=== PATIENT | male | born 1975 | race Two or more races ===

== ENCOUNTER 2025-04-20 17:32 | Inpatient (IN) | payer OTHER ==
[2025-04-20] MEDS ORDERED: niCARdipine 25 MG/10 ML SDV ONE ×2 (18:25→21:27)
[2025-04-20 20:52] LABS: #Basophils 0.04 10x3/uL (0.0-0.2); #Eosinophils 0.53 10x3/uL (0.0-0.7); #Monocytes 0.54 10x3/uL (0.11-0.59); #Neutrophils 4.16 10x3/uL (1.40-6.50); %Basophils 0.5 % (0.0-1.0); %Eosinophils 7.3 % (0.0-10.0); %Lymphocytes 27.8 % (21.0-51.0); %Monocytes 7.4 % (0.0-10.0); %Neutrophils 56.9 % (42.0-75.0); Hematocrit 42.9 % (42.0-52.0); Hemoglobin 13.7 g/dL (14.0-18.0); Mean Corpuscular Hemoglobin 30.1 pg (27.0-31.0); Mean Corpuscular Volume 94.3 fL (78.0-98.0); Platelet Count 305 10x3/uL (130-400); Red Blood Cell (RBC) Count 4.55 mill/uL (4.70-6.10); White Blood Cell (WBC) Count 7.31 10x3/uL (4.8-10.8)
[2025-04-20 21:26] LABS: ALT (SGPT) 16 U/L (Less than 45); AST (SGOT) 30 U/L (11-34); Albumin 4.3 g/dL (3.1-4.5); Alkaline Phosphatase 116 U/L (40-110); Anion Gap 17 mmol/L (10-20); BUN (Urea Nitrogen) 18 mg/dL (8.9-20.6); Bilirubin, Total 0.4 mg/dL (0.3-1.2); Calc. Creatinine Clearance 0 mL/min (70-130); Calcium 9.8 mg/dL (7.8-10.44); Carbon Dioxide 23 mmol/L (22-29); Chloride 105 mmol/L (98-107); Globulin 3.2 g/dL (2.4-3.5); Glucose 97 mg/dL (70-105); Potassium 3.9 mmol/L (3.5-5.1); Sodium 141 mmol/L (136-145)
[2025-04-20] MEDS ORDERED: Calcium Carbonate 500 MG ChewTAB PO PRN (22:27)
[2025-04-20] MEDS ORDERED: Ondansetron PF 4 MG/2 ML Vial IVP PRN (22:27)
[2025-04-20] MEDS ORDERED: niCARdipine 40MG In NaCl 40 MG/200 ML BAG IVPB SCH (22:30)
[2025-04-20 22:44] VITALS: BMI 36.9
[2025-04-20] MEDS: HYDROcodone/Acetaminophen 7.5/325 mg Tablet PO PRN (22:54)
[2025-04-20] MEDS ORDERED: HYDROcodone/Acetaminophen 10/325 mg Tablet PO PRN (23:44)
[2025-04-21] MEDS: Acetaminophen 325 MG TAB PO PRN (02:40)
[2025-04-21] MEDS: HYDROcodone/Acetaminophen 5/325 mg Tablet PO PRN (04:45)
[2025-04-21 05:38] LABS: #Basophils 0.03 10x3/uL (0.0-0.2); #Eosinophils 0.23 10x3/uL (0.0-0.7); #Monocytes 0.65 10x3/uL (0.11-0.59); #Neutrophils 7.00 10x3/uL (1.40-6.50); %Basophils 0.3 % (0.0-1.0); %Eosinophils 2.5 % (0.0-10.0); %Lymphocytes 14.0 % (21.0-51.0); %Monocytes 7.0 % (0.0-10.0); %Neutrophils 75.9 % (42.0-75.0); Hematocrit 42.4 % (42.0-52.0); Hemoglobin 13.8 g/dL (14.0-18.0); Mean Corpuscular Hemoglobin 30.1 pg (27.0-31.0); Mean Corpuscular Volume 92.4 fL (78.0-98.0); Platelet Count 304 10x3/uL (130-400); Red Blood Cell (RBC) Count 4.59 mill/uL (4.70-6.10); White Blood Cell (WBC) Count 9.23 10x3/uL (4.8-10.8)
[2025-04-21 06:08] LABS: ALT (SGPT) 14 U/L (Less than 45); AST (SGOT) 25 U/L (11-34); Albumin 4.2 g/dL (3.1-4.5); Alkaline Phosphatase 111 U/L (40-110); Anion Gap 15 mmol/L (10-20); BUN (Urea Nitrogen) 19 mg/dL (8.9-20.6); Bilirubin, Total 0.5 mg/dL (0.3-1.2); Calc. Creatinine Clearance 103 mL/min (70-130); Calcium 9.8 mg/dL (7.8-10.44); Carbon Dioxide 25 mmol/L (22-29); Cardiac Risk 4.1 (Less than 4.5); Chloride 102 mmol/L (98-107); Cholesterol 182 mg/dl (< 200 Desired); Globulin 3.1 g/dL (2.4-3.5); Glucose 107 mg/dL (70-105); HDL Cholesterol 44 mg/dL (>60 Neg Risk); LDL Cholesterol, Calculated 119 mg/dL; Potassium 3.7 mmol/L (3.5-5.1); Sodium 138 mmol/L (136-145); Triglycerides 95 mg/dL (Less than 150)
[2025-04-21 06:17] LABS: Free T4 (Free Thyroxine) 0.96 ng/dL (0.70-1.48); Thyroid Stimulating Hormone 0.6866 uIU/mL (0.35-4.94)
[2025-04-21] MEDS: Enoxaparin 40 MG (0.4 mL) SYRINGE SC SCH (09:15)
[2025-04-21] MEDS: Pantoprazole 40 MG VIAL IVP SCH (09:16)
[2025-04-21] MEDS: Losartan 25 MG TAB PO SCH (10:18)
[2025-04-21] MEDS: hydrALAZINE 20 MG/ML VIAL SLOW IVP PRN (12:39)
[2025-04-21 14:58] VITALS: BMI 36.9
[2025-04-21] MEDS: niCARdipine 25 MG in Sodium Chloride 0.9% 250 ML 250 ML IVPB SCH (15:37)
[2025-04-21] MEDS: niCARdipine 50 MG, Admixture Fee 1 EACH in Sodium Chloride 0.9% 250 ML 230 ML IV SCH (21:02)
[2025-04-22 05:06] LABS: #Basophils 0.04 10x3/uL (0.0-0.2); #Eosinophils 0.54 10x3/uL (0.0-0.7); #Monocytes 0.68 10x3/uL (0.11-0.59); #Neutrophils 4.37 10x3/uL (1.40-6.50); %Basophils 0.5 % (0.0-1.0); %Eosinophils 7.3 % (0.0-10.0); %Lymphocytes 23.5 % (21.0-51.0); %Monocytes 9.2 % (0.0-10.0); %Neutrophils 59.2 % (42.0-75.0); Hematocrit 44.5 % (42.0-52.0); Hemoglobin 14.0 g/dL (14.0-18.0); Mean Corpuscular Hemoglobin 29.6 pg (27.0-31.0); Mean Corpuscular Volume 94.1 fL (78.0-98.0); Platelet Count 308 10x3/uL (130-400); Red Blood Cell (RBC) Count 4.73 mill/uL (4.70-6.10); White Blood Cell (WBC) Count 7.39 10x3/uL (4.8-10.8)
[2025-04-22 05:18] LABS: ALT (SGPT) 15 U/L (Less than 45); AST (SGOT) 23 U/L (11-34); Albumin 4.1 g/dL (3.1-4.5); Alkaline Phosphatase 109 U/L (40-110); Anion Gap 13 mmol/L (10-20); BUN (Urea Nitrogen) 21 mg/dL (8.9-20.6); Bilirubin, Total 0.4 mg/dL (0.3-1.2); Calc. Creatinine Clearance 110 mL/min (70-130); Calcium 9.6 mg/dL (7.8-10.44); Carbon Dioxide 25 mmol/L (22-29); Chloride 106 mmol/L (98-107); Globulin 3.0 g/dL (2.4-3.5); Glucose 101 mg/dL (70-105); Magnesium 2.2 mg/dL (1.6-2.6); Potassium 3.5 mmol/L (3.5-5.1); Sodium 140 mmol/L (136-145)
[2025-04-22] MEDS: Pantoprazole 40 MG DR.TAB PO SCH (09:27)
[2025-04-22] MEDS: Losartan 25 MG TAB PO SCH (09:28)
[2025-04-22] MEDS: Chlorthalidone 25 MG TAB PO SCH (11:11)
[2025-04-22] MEDS: Ketorolac Tromethamine 30 MG (1 mL) VIAL IVP SCH (18:49)
[2025-04-22] MEDS: Gabapentin 300 MG CAP PO SCH (19:54)
[2025-04-22] MEDS: HYDROcodone/Acetaminophen 7.5/325 mg Tablet PO PRN (22:23)
[2025-04-22] MEDS: cloNIDine 0.1 MG TAB PO PRN (23:35)
[2025-04-23 04:21] LABS: #Basophils 0.04 10x3/uL (0.0-0.2); #Eosinophils 0.59 10x3/uL (0.0-0.7); #Monocytes 0.75 10x3/uL (0.11-0.59); #Neutrophils 3.87 10x3/uL (1.40-6.50); %Basophils 0.6 % (0.0-1.0); %Eosinophils 8.4 % (0.0-10.0); %Lymphocytes 24.8 % (21.0-51.0); %Monocytes 10.7 % (0.0-10.0); %Neutrophils 54.9 % (42.0-75.0); Hematocrit 44.4 % (42.0-52.0); Hemoglobin 14.0 g/dL (14.0-18.0); Mean Corpuscular Hemoglobin 30.2 pg (27.0-31.0); Mean Corpuscular Volume 95.7 fL (78.0-98.0); Platelet Count 312 10x3/uL (130-400); Red Blood Cell (RBC) Count 4.64 mill/uL (4.70-6.10); White Blood Cell (WBC) Count 7.03 10x3/uL (4.8-10.8)
[2025-04-23 04:51] LABS: ALT (SGPT) 18 U/L (Less than 45); AST (SGOT) 21 U/L (11-34); Albumin 3.7 g/dL (3.1-4.5); Alkaline Phosphatase 105 U/L (40-110); Anion Gap 20 mmol/L (10-20); BUN (Urea Nitrogen) 25 mg/dL (8.9-20.6); Bilirubin, Total 0.5 mg/dL (0.3-1.2); Calc. Creatinine Clearance 94 mL/min (70-130); Calcium 9.4 mg/dL (7.8-10.44); Carbon Dioxide 23 mmol/L (22-29); Chloride 100 mmol/L (98-107); Globulin 2.9 g/dL (2.4-3.5); Glucose 123 mg/dL (70-105); Magnesium 2.3 mg/dL (1.6-2.6); Potassium 3.7 mmol/L (3.5-5.1); Sodium 139 mmol/L (136-145)
[2025-04-23] MEDS: Losartan 25 MG TAB PO SCH (08:17)
[2025-04-24 06:11] LABS: Anion Gap 14 mmol/L (10-20); BUN (Urea Nitrogen) 26 mg/dL (8.9-20.6); Calc. Creatinine Clearance 97 mL/min (70-130); Calcium 9.4 mg/dL (7.8-10.44); Carbon Dioxide 24 mmol/L (22-29); Chloride 106 mmol/L (98-107); Glucose 98 mg/dL (70-105); Potassium 4.1 mmol/L (3.5-5.1); Sodium 140 mmol/L (136-145)
[2025-04-24 08:40] VITALS: TEMP 98.4
[2025-04-24 10:55] VITALS: BP 141/88
== END 2025-04-24 11:33 | disposition home or self-care (01) | DRG 305 ==
LOC: ERS 17:32 → CCU 20:35 → T4-B 04-23 15:19
PROVIDERS: ADMIT Student in an Organized Health Care Education/Training Program; ATTEND Internal Medicine
DX: I16.1 Hypertensive emergency (principal); L97.929 Non-pressure chronic ulcer of unspecified part of left lower leg with unspecified severity; N17.9 Acute kidney failure, unspecified; Z98.890 Other specified postprocedural states; I12.9 Hypertensive chronic kidney disease with stage 1 through stage 4 chronic kidney disease, or unspecified chronic kidney disease; N18.30 Chronic kidney disease, stage 3 unspecified; E11.9 Type 2 diabetes mellitus without complications; R79.89 Other specified abnormal findings of blood chemistry; Z68.34 Body mass index [BMI] 34.0-34.9, adult; Z79.899 Other long term (current) drug therapy; Z90.49 Acquired absence of other specified parts of digestive tract; F17.210 Nicotine dependence, cigarettes, uncomplicated; I16.0 Hypertensive urgency; I34.0 Nonrheumatic mitral (valve) insufficiency; E66.811 Obesity, class 1
CPT/HCPCS: 36415; 76770; 80048; 80053; 80061; 83036; 83735; 84439; 84443; 84481; 84484; 85025; 86141; 93005; 93306; 96365; 96366; 96375; 97139; J0360; J1650; J1885; J2270; J2470; J7050